=== PATIENT | male | born 2005 | race Caucasian/White ===

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

== ENCOUNTER 2025-01-15 20:20 | Emergency (ER) | payer BC, MEDICAID, SELFPAY ==
[2025-01-15 20:21] VITALS: BP 137/79; PULSE 113; RESP 18; TEMP 36.9; O2SAT 100
--- NOTE | 2025-01-15 20:40 | RAD_ITS ---
PROCEDURE: KNEE 4 OR MORE VIEWS 01/15/2025 REASON FOR EXAM: PAIN, LIMITED ROM TECHNIQUE: Procedure Code: RADKN Modality: DX Procedure: KNEE 4 OR MORE VIEWS COMPARISON: none RAD/Knee 4 or More Views IMPRESSION: No acute fracture or dislocations. No significant degenerative changes. Minimal joint effusion. Minimal soft tissue edema. no radiographic foreign body. Reading Location: [facility]
--- NOTE | 2025-01-15 21:20 | EX.ED.DYSGE1 ---
HPI History of Present Illness Chief Complaint: Lower Extremity Injury PFSH PFS Home Medications ?Medication ?Instructions ?Recorded ?Last Taken ?Type NK 10/14/23 Unknown History Allergy/AdvReac Type Severity Reaction Status Date / Time No Known Allergies Allergy Verified 01/15/25 20:20 Social History Smoking Status: Never smoker EXAM Physical Exam Const Vital Signs: 01/15/25 20:21 Temperature 98.4 F Temperature Source Temporal Pulse Rate 113 H Respiratory Rate 18 Blood Pressure 137/79 H Blood Pressure Mean 98 Pulse Ox 100 Oxygen Delivery Method Room Air [facility] Narrative Medical decision making narrative: HISTORY OF PRESENT ILLNESS: Chief complaint: Knee pain 19 old male presents with right knee pain after injuring his right knee playing softball tonight. REVIEW OF SYSTEMS: Pertinent positives: Knee pain Pertinent negatives: Numbness, swelling PHYSICAL EXAM: Nursing triage notes reviewed, Vital signs reviewed Constitutional: please see mdm Extremities: N swelling noted to right knee. TTP of right knee painful but intact range of motion noted to right knee. Right lower extremity warm well-perfused Neuro: Intact sensation L1-S1 dermatomal distributions. Intact 5/5 strength in hip flexion (T12-L3). Knee extension (L2-L4). Ankle dorsiflexion (L4-L5). Ankle plantar flexion (S1). Great toe extension (L5). 2+ patellar and Achilles DTRs. Skin: No rash or lesions noted, no signs of open fracture MEDICAL DECISION MAKING: Chief Complaint: please see [facility] Narrative: The patient was initially hemodynamically stable, afebrile and nontoxic-appearing I considered the following differential diagnosis: Knee fracture, patellar dislocation, knee dislocation, knee contusion or knee sprain I obtained an x-ray to further determine if the patient was suffering from a life-threatening etiology. Initially treat the patient with ice ALL IMAGES (IF OBTAINED) HAVE BEEN PERSONALLY REVIEWED AND INTERPRETED BY MYSELF. X-ray of the right knee was read reviewed person myself show no evidence of a bony abnormality The synthesis of the patient history, physical exam, labs images suggest a knee sprain. Will provide an Humphrey wrap and return to play instructions. Strict return precautions will be discussed. Follow-up instructions will be discussed The patient and/or family, caregivers express understanding. The patient and/or family, caregivers agrees with the plan. Shared decision making: I will have a discussion with the patient and or visitors regarding risk/benefits of further testing or admission. They will be made aware of of the risk/benefits inherent in this decision they will be given the opportunity to voice understanding. Total critical care time today provided was at least 0 minutes. This excludes separately billable procedures. Critical care time (if documented) is secondary to the patient having high probability of clinically significant/life threatening deterioration in the patient's condition which required my urgent intervention. Impression: 1. Acute knee pain 2. Acute knee sprain Dispo: Discharge home This note was generated with [employer] dictation software. It may contain incorrect words, spelling, and punctuation that were not noted in review of the chart prior to signing. Radiography Diagnostic Testing: Clinical Impression(s) from Imaging Studies Knee X-Ray 01/15/25 20:40 IMPRESSION: No acute fracture or dislocations. No significant degenerative changes. Minimal joint effusion. Minimal soft tissue edema. no radiographic foreign body. Reading Location: [facility] Discharge Plan Triage Chief Complaint: Lower Extremity Injury ED Provider: Ced Lamb Dx/Rx/DC Orders Prescriptions: No Action NK Primary Care Provider: Live Mack Referrals: Live Mack MD [Primary Care Provider] - Print Language: Spanish
[2025-01-15 21:57] VITALS: BMI 27.3
[2025-01-15 22:17] VITALS: BP 130/78; PULSE 71; RESP 16; TEMP 36.7; O2SAT 99
== END 2025-01-15 22:18 | disposition home or self-care (01) ==
PROVIDERS: Emergency Provider Emergency Medicine; Visit Provider Emergency Medicine
DX: S83.91XA Sprain of unspecified site of right knee, initial encounter (principal); X58.XXXA Exposure to other specified factors, initial encounter; Y93.64 Activity, baseball
CPT/HCPCS: 73564; 99284